=== PATIENT | female | born 1975 | race Caucasian/White ===

== ENCOUNTER 2019-07-28 09:48 | Outpatient (CLI) | payer MEDICAID ==
--- NOTE | 2019-07-28 10:54 | MMO ---
Bilateral MAMMO Bilat Screen [facility]. CLINICAL HISTORY: Patient is 43 years old and is seen for screening. The patient has no family history of breast cancer. The patient has no personal history of cancer. VIEWS: The views performed were: bilateral craniocaudal with tomosynthesis and bilateral mediolateral oblique with tomosynthesis. FILMS COMPARED: The present examination has been compared to a prior imaging study performed at [facility] on 07/28/2019. This study has been interpreted with the assistance of computer-aided detection. MAMMOGRAM FINDINGS: The breasts are heterogeneously dense, which could obscure a lesion on mammography. No mass or architectural distortion is seen at site of palpable abnormality in the retroareolar region right breast. Ultrasound shows 3 anechoic structures compatible with cysts at site of palpable abnormality. There are no suspicious masses, suspicious calcifications, or new areas of architectural distortion. IMPRESSION: THERE IS NO MAMMOGRAPHIC EVIDENCE OF MALIGNANCY. A ROUTINE FOLLOW-UP MAMMOGRAM IN 1 YEAR IS RECOMMENDED. THE RESULTS OF THIS EXAM WERE SENT TO THE PATIENT. ACR BI-RADS Category 2 - Benign finding MAMMOGRAPHY NOTE: 1. A negative mammogram report should not delay a biopsy if a dominant of clinically suspicious mass is present. 2. Approximately 10% to 15% of breast cancers are not detected by mammography. 3. Adenosis and dense breasts may obscure an underlying neoplasm. Reported by: YESENIA IQBAL MD Electonically Signed: [id number]
--- NOTE | 2019-07-28 11:45 | ULT ---
LIMITED RIGHT BREAST ULTRASOUND: HISTORY: Focal pain, retroareolar region, right breast. FINDINGS: Limited sonographic evaluation of the right breast was performed in a retroareolar region as well as at the 9 o'clock position, anterior depth, retroareolar region, right breast. There are three anechoi c cystic structures present with two closely adjacent cystic structures present, which are measured a s one cystic structure but findings are likely related to two closely adjacent cysts as opposed to cy sts with a septation. This measures just less than 1 cm in maximal dimension. Second anechoic cystic structure measures approximately 5 mm. No solid mass is appreciated. IMPRESSION: 1. BI-RADS category 2 - benign findings. Routine annual mammographic screening is recommended. 2. Cysts, right breast, at the 9 o'clock position. POS: OFF
== END 2019-07-28 09:49 | disposition home or self-care (01) ==
LOC: BICMAMMO 09:48
PROVIDERS: ATTEND Family Medicine
DX: N64.4 Mastodynia (principal); N60.01 Solitary cyst of right breast
CPT/HCPCS: 77063; 77066; 77067; G0279